=== PATIENT | male | born 1945 | race Caucasian/White ===

== ENCOUNTER 2018-05-18 07:35 | Day surgery (SDC) | payer MEDICARE, OTHER ==
[~2018-05-18] VITALS: Ht 177.8 cm; Wt 101.6 kg
[~2018-05-18 07:35] MED LIST: ALLOPURINOL300 MG PO; ATENOLOL100 MG PO; CLONAZEPAM1 MG PO; FLUOXETINE HCL20 MG PO; HEALTHYLAX17 GM PO; PROAIR RESPICL90 MCG IH; ZESTRIL40 MG; ZOCOR40 MG PO
[2018-05-18] MEDS ORDERED: ADULT LOW DOSE81 MG PO (08:14)
--- NOTE | 2018-05-18 09:47 | NUR ---
05/18/18 0947 Mary Dwyer 0930- PT ARRIVES TO PACU. PT AROUSABLE TO NOXIOUS STIMULI AND INSTANTLY FALLS BACK TO SLEEP. OXYGEN SAT MID 90'S ON 3L VIA NC. RESP EVEN AND UNLABORED. 0937- DR. VEGAS AT THE BEDSIDE. PT REMAINS TO DROWSY TO TALK TO THE DOCTOR. PT IS AROUSABLE TO NOXIOUS STIMULI. RESP EVEN AND UNLABORED. 0946- PT IS ABLE TO ANSWER SIMPLE QUESTIONS AT THIS TIME. NEEDS HELP WITH INITIAL AROUSAL.
--- NOTE | 2018-05-19 08:37 | OR ---
[facility] [address], [place] [address] Signed DATE OF OPERATION: 05/18/2018 SURGEON: Geovanna Vegas MD PREOPERATIVE DIAGNOSIS: Constipation, improved with MiraLAX. POSTOPERATIVE DIAGNOSIS: Small polyp, left colon at 60 cm. PROCEDURE PERFORMED: Total colonoscopy to cecum with cold morcellation polypectomy x1. ANESTHESIA: Intravenous sedation. Fentanyl 100 mcg and Versed 6 mg. INDICATION: A 72-year-old white man who is a patient Dr. Lundberg and has had complaints of constipation. This is improved by MiraLAX however. He was last seen by me in 2009. He has no family history of colon cancer. He is here for colonoscopy. He understands the risks of bleeding, infection, and perforation. FINDINGS: The prep was good except in the cecum where there was some residual solid stool, which could not be removed entirely. There was no sign of inflammatory change. He had a very small polyp at 60 cm, which was excised with cold morcellation technique. The remaining colon was normal. DESCRIPTION OF PROCEDURE: The patient was brought to the endoscopy suite and placed in lateral decubitus position, given intravenous sedation to the point of slurred speech and nystagmus. Digital rectal examination was normal. An Olympus video colonoscope was passed in the rectum and manipulated throughout the colon, ultimately passed into the right colon. The scope was advanced to the cecal area where there was some solid stool that was adherent to the cecal wall. Irrigation was undertaken, but it could not be removed unfortunately. After attempts were exhausted in freeing the stool but mindful that the contour of the colon and the area appeared normal, the scope was then withdrawn. Careful examination upon withdrawal of scope showed no sign of abnormality until approximately 60 cm from the anal verge where a Electronically Signed By: GEOVANNA VEGAS MD 05/19/18 0837 PATIENT NAME: MAUREEN BAUTISTA OPERATIVE REPORT DATE OF : 43 REPORT #: [id number] PHYSICIAN: GEOVANNA VEGAS MD PCP: PK LUNDBERG MD REPORT IS CONFIDENTIAL AND NOT TO BE RELEASED WITHOUT AUTHORIZATION [facility] [address], [place] [address] Signed small polyp was noted. Photographs were taken. The lesion was excised with cold morcellation technique. Further withdrawal of scope showed no other abnormality. Retroflexed view was normal. The scope was removed and the patient was taken to recovery room in good condition. CONCLUDING DIAGNOSIS: Small polyp of left colon, completely excised. PLAN.: I Recommend repeat colonoscopy in 5 years based on pathology, sooner if symptoms should develop. MD EMILI Bowman/IZABEL /[id number] cc: Pk Lundberg MD Copies: PK LUNDBERG MD ~ Electronically Signed By: GEOVANNA VEGAS MD 05/19/18 0837 PATIENT NAME: MAUREEN BAUTISTA OPERATIVE REPORT DATE OF : 43 REPORT #: [id number] PHYSICIAN: GEOVANNA VEGAS MD PCP: PK LUNDBERG MD REPORT IS CONFIDENTIAL AND NOT TO BE RELEASED WITHOUT AUTHORIZATION
== END 2018-05-18 10:36 | disposition home or self-care (01) ==
LOC: OPS 07:35 → DS 07:35 → OPS 08:30
PROVIDERS: Surgery
PROC: 0DBG8ZZ Excision of Left Large Intestine, Via Natural or Artificial Opening Endoscopic (ICD-10-PCS; principal; 2018-05-18 08:30)
DX: K63.5 Polyp of colon (principal); K59.00 Constipation, unspecified; I10 Essential (primary) hypertension; M19.90 Unspecified osteoarthritis, unspecified site; M10.9 Gout, unspecified; E78.5 Hyperlipidemia, unspecified
CPT/HCPCS: 99153; G0500; J0690; J2250; J3010; J7120